=== PATIENT | female | born 1990 | race Caucasian/White ===

== ENCOUNTER → 2023-02-18 15:20 | Outpatient (BNVA) | payer BC, SELFPAY | PROVIDERS: Visit Provider Psychiatry & Neurology Psychiatry | DX: F11.21 Opioid dependence, in remission (principal); Z79.899 Other long term (current) drug therapy; F17.210 Nicotine dependence, cigarettes, uncomplicated; F15.21 Other stimulant dependence, in remission; F33.2 Major depressive disorder, recurrent severe without psychotic features; F43.12 Post-traumatic stress disorder, chronic | CPT/HCPCS: 80307 ==

== ENCOUNTER → 2023-03-20 13:16 | Outpatient (BNVA) | payer BC, SELFPAY | PROVIDERS: Visit Provider Psychiatry & Neurology Psychiatry | DX: F11.21 Opioid dependence, in remission (principal); Z79.899 Other long term (current) drug therapy; F17.210 Nicotine dependence, cigarettes, uncomplicated | CPT/HCPCS: 80307 ==

== ENCOUNTER → 2025-02-23 13:11 | Outpatient (BNVA) | payer BC, MEDICAID, SELFPAY | DX: R30.0 Dysuria (principal) | CPT/HCPCS: 81000; 87086 ==